=== PATIENT | female | born 1990 | race African-American/Black ===

== ENCOUNTER 2017-02-13 18:57 | Emergency (ER) | payer BC ==
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
[2017-02-13 19:20] VITALS: BP 104/59; PULSE 118; TEMP 98.5; BMI 26.9
[2017-02-13 19:50] LABS: URINE APPEARANCE CLEAR; URINE BILIRUBIN NEGATIVE (NEGATIVE); URINE BLOOD NEGATIVE (NEGATIVE); URINE COLOR LTYELLOW; URINE GLUCOSE (UA) NEGATIVE (NEGATIVE); URINE KETONE NEGATIVE (NEGATIVE); URINE LEUK ESTERASE NEGATIVE (NEGATIVE); URINE NITRITE NEGATIVE (NEGATIVE); URINE UROBILINOGEN NEGATIVE E.U./dl (0.2-1.0)
[2017-02-13 19:55] LABS: URINE PROTEIN 2+ (NEGATIVE)
[2017-02-13 20:06] LABS: GRANULAR CASTS 1 /lpf; URINE MUCUS RARE; URINE RBC 1 /hpf (0-3); URINE WBC 2 /hpf (3-5)
[2017-02-13] MEDS ORDERED: ACETAMINOPHEN 325 MG TABLET (FP) PO ONE (21:51)
== END 2017-02-13 22:09 | disposition home or self-care (01) ==
LOC: JER 18:57
DX: S39.81XA Other specified injuries of abdomen, initial encounter (principal); Y04.2XXA Assault by strike against or bumped into by another person, initial encounter; Y93.89 Activity, other specified; Y92.89 Other specified places as the place of occurrence of the external cause; Y99.8 Other external cause status; Y07.59 Other non-family member, perpetrator of maltreatment and neglect; Z3A.11 11 weeks gestation of pregnancy
CPT/HCPCS: 36415; 76801-TC; 81003; 81015; 84702; 99283-25

== ENCOUNTER 2017-03-30 11:01 | Emergency (ER) | payer BC ==
[2017-03-30 11:10] VITALS: TEMP 98; BMI 27.9
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
[2017-03-30] MEDS ORDERED: ACETAMINOPHEN 500 MG TABLET (FP) PO ONE (11:57)
[2017-03-30] MEDS ORDERED: ACETAMINOPHEN 325 MG TABLET (FP) ONE (12:19)
[2017-03-30 12:35] LABS: BASOPHIL 0.2 % (0-2.0); EOSINOPHIL 0.4 % (0-4.5); MCH 30.9 pg (25.7-33.7); MCHC 33.5 g/dl (32.0-36.0); MEAN CELL VOLUME 92.5 fl (80-96); MEAN PLT VOLUME 10.2 fl (7.5-11.1); PLATELET COUNT 159 K/MM3 (134-434); RDW 13.2 % (11.6-15.6); WHITE BLOOD COUNT 9.2 K/mm3 (4.0-10.0)
[2017-03-30 12:39] LABS: URINE APPEARANCE CLEAR; URINE BILIRUBIN NEGATIVE (NEGATIVE); URINE BLOOD NEGATIVE (NEGATIVE); URINE COLOR STRAW; URINE GLUCOSE (UA) NEGATIVE (NEGATIVE); URINE KETONE NEGATIVE (NEGATIVE); URINE LEUK ESTERASE NEGATIVE (NEGATIVE); URINE NITRITE NEGATIVE (NEGATIVE); URINE PROTEIN NEGATIVE (NEGATIVE); URINE UROBILINOGEN NEGATIVE E.U./dl (0.2-1.0)
[2017-03-30 13:54] LABS: ALK PHOS 42 U/L (45-117); ANION GAP 8 (8-16); BILIRUBIN,TOTAL 0.5 mg/dL (0.2-1.0); CALCIUM 8.6 mg/dL (8.5-10.1); CO2 26 mmol/L (21-32); CREATININE 0.6 mg/dL (0.55-1.02); GLUCOSE,RANDOM 73 mg/dL (74-106); SGOT/AST 18 U/L (15-37); SGPT/ALT 14 U/L (12-78)
[2017-03-30 15:24] VITALS: BP 112/64; PULSE 80
== END 2017-03-30 15:25 | disposition home or self-care (01) ==
LOC: JER 11:01
DX: O26.892 Other specified pregnancy related conditions, second trimester (principal); N83.8 Other noninflammatory disorders of ovary, fallopian tube and broad ligament; Z3A.17 17 weeks gestation of pregnancy
CPT/HCPCS: 36415; 80053; 81003; 85025; 99282-25

== ENCOUNTER → 2017-05-08 | Emergency (ER) | payer OTHER, BC ==
[2017-05-08 18:47] VITALS: BMI 28.6
[2017-05-08 21:03] VITALS: BP 117/55; PULSE 91; TEMP 98.4
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
== END ==
LOC: JER 18:33
CPT/HCPCS: 76815-TC; 76830-TC; 99281-25

== ENCOUNTER 2018-06-24 11:37 | Emergency (ER) | payer BC ==
[2018-06-24 11:44] VITALS: TEMP 98.2; BMI 27.4
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
[2018-06-24] MEDS ORDERED: ACETAMINOPHEN 325 MG TABLET (FP) PO ONE (13:27)
[2018-06-24] MEDS ORDERED: ACETAMINOPHEN 325 MG TABLET (FP) ONE (14:08)
[2018-06-24 14:21] LABS: BASO % 0.6 % (0-2.0); EOS % 1.2 % (0-4.5); HEMATOCRIT 43.5 % (32.4-45.2); HEMOGLOBIN 14.2 GM/dL (10.7-15.3); LYMPH % 38.2 % (8-40); MCHC 32.7 g/dl (32.0-36.0); MEAN CELL VOLUME 91.7 fl (80-96); MEAN PLT VOLUME 10.3 fl (7.5-11.1); MONO % 11.2 % (3.8-10.2); NEUT % 48.8 % (42.8-82.8); PLATELET COUNT 188 K/MM3 (134-434); RBC 4.74 M/mm3 (3.60-5.2); WHITE BLOOD COUNT 5.3 K/mm3 (4.0-10.0)
[2018-06-24 14:45] LABS: ALK PHOS 87 U/L (45-117); ANION GAP 5 MMOL/L (8-16); BILIRUBIN,TOTAL 1.3 mg/dL (0.2-1); BLOOD UREA NITROGEN 14 mg/dL (7-18); CHLORIDE 108 mmol/L (98-107); CO2 28 mmol/L (21-32); CREATININE 0.9 mg/dL (0.55-1.3); GLUCOSE,RANDOM 80 mg/dL (74-106); POTASSIUM 4.6 mmol/L (3.5-5.1); SGOT/AST 23 U/L (15-37); SGPT/ALT 18 U/L (13-61); SODIUM 141 mmol/L (136-145); TOT PROT 7.3 g/dl (6.4-8.2)
[2018-06-24] MEDS ORDERED: KETOROLAC TROMETHAMINE 15 MG/ML VIAL IVPUSH ONE (15:21)
--- NOTE | 2018-06-24 15:37 | PDOC ---
Attending Attestation - Resident Resident Name: Colton Waller - ED Attending Attestation I have performed the following: I have examined & evaluated the patient, The case was reviewed & discussed with the resident, I agree w/resident's findings & plan - HPI HPI: 06/24/18 15:33 The patient is a 28 year old female, with a significant past medical history of pericarditis, who presents to the emergency department with, 3 days of chest pain and sob. She describes her chest pain as pleuritic, sharp, left sided, ranking 7/10 radiating to her back with associated shortness of breath. The pain is worsened when lying down and alleviated when sitting forward. She notes the pain to originally onset as intermittent but, worsened to constant over the past day. She reports her pain is similar to her past episode of pericarditis. She is positive sick contacts at work. She denies recent fevers, chills, headache or dizziness. She denies recent nausea, vomit, diarrhea or constipation. She denies recent dysuria, frequency, urgency or hematuria. Allergies: NKA Social history: Nonsmoker. Denies EtOH use and recreational drug use. Primary Care Physician: Dr. Gm Sotelo - Physicial Exam PE: 06/24/18 15:33 NAD, well appearing, MMM, nl conjunctiva, anicteric; neck supple. lungs clear, RRR, abdomen soft nontender. THOMASON x4, no focal neuro deficits. No peripheral edema. normal color for ethnicity, [facility]. - Medical Decision Making 06/24/18 15:33 28 YOF with h/o pericarditis, post 10 weeks presenting with CP and pleurisy/sob. denies immobilization/surgery. denies prodromal sx. 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 DDx chest pain: ACS, PE, dissection, PUD, esophageal spasm, GERD, gastritis, costochondritis, pneumonia, pleurisy, pericarditis/myocarditis. dehydration, electrolyte/metabolic derangements. vitals wnl, mild tachy from pain. bilateral arm pressures normal, no differential. given toradol and tylenol, PO fluids POCUS echo and thoracic without acute findings, neg for pericardial effusion, normal Ao root and RV<LV. A line profile, no fluid in the pleural bases. symptomatic improvement. labs and lytes, trop neg. EKG normal sinus rhythm, no interval abnormalities, narrow QRS, ST and T wave segments and morphology normal. no ST segment elevation or depression. clinically improved. rx NSAID/tylenol. borderline pressures, but also young and healthy. no tamponade or etiology or septic source, so likely normal for age. Pt informed of my clinical impression, treatment recommendations and disposition plan. All questions answered to patient's satisfaction and expressed understanding and comfort with this. Reasons for returning to the ED sooner discussed with the patient otherwise, follow up with primary care physician. At the time of discharge, the patient is alert, clinically improved, tolerating po and verbalizes understanding of instructions. 06/24/18 16:41 Heart Score/ECG Review - ECG Impressions Comment:: 06/24/18 15:37 EKG normal sinus rhythm, no interval abnormalities, narrow QRS, ST and T wave segments and morphology normal. no ST segment depression/elevation. 06/24/18 16:42 Procedures - Bedside Ultrasound Bedside Ultrasound: Cardiac Remarks: 06/24/18 15:35 POCUS echo and thoracic exam performed, indication includes chest pain/dyspnea. views obtained (PSLA, PSS, A4, SX; bilateral lung alvarado and bases). Findings include normal EF, no pericardial or pleural effusion, primarily A lines, no FWMA. Normal aortic root <4cm. RV<LV. Impression: no acute findings.
[2018-06-24] MEDS ORDERED: KETOROLAC TROMETHAMINE 15 MG/ML VIAL ONE (15:54)
[2018-06-24 17:10] VITALS: BP 110/61; PULSE 83
--- NOTE | 2018-06-25 16:04 | EKG ---
Test Reason : Blood Pressure : / mmHG Vent. Rate : 084 BPM Atrial Rate : 084 BPM P-R Int : 160 ms QRS Dur : 086 ms QT Int : 356 ms P-R-T Axes : 063 084 051 degrees QTc Int : 420 ms NORMAL SINUS RHYTHM WITH SINUS ARRHYTHMIA POSSIBLE LEFT ATRIAL ENLARGEMENT BORDERLINE ECG WHEN COMPARED WITH ECG OF 14-MAY-2013 16:50, NO SIGNIFICANT CHANGE WAS FOUND Confirmed by Hieu Gamino MD ([id number]) on 06/25/2018 4:03:42 PM Referred By: Confirmed By:Hieu Gamino MD
== END 2018-06-24 17:08 | disposition home or self-care (01) ==
LOC: JER 11:37
PROC: 3E0333Z Introduction of Anti-inflammatory into Peripheral Vein, Percutaneous Approach (ICD-10-PCS; principal; 2018-06-24)
DX: R07.9 Chest pain, unspecified (principal); J45.909 Unspecified asthma, uncomplicated; D64.9 Anemia, unspecified
CPT/HCPCS: 36415; 71046-TC-FY; 80053; 82550; 82553; 84484; 84703; 85025; 93005; 93010; 99284-25